=== PATIENT | female | born 1965 | race Two or more races ===

== ENCOUNTER 2019-01-18 01:36 | Emergency (ER) | payer OTHER ==
[2019-01-18 03:07] VITALS: BP 134/79; PULSE 70; TEMP 98.3; BMI 27.3
[2019-01-18] MEDS ORDERED: SODIUM CHLORIDE 1,000 ML IV STA ×2 (03:12→03:59)
[2019-01-18] MEDS ORDERED: METOCLOPRAMIDE HCL INJECTION 10 MG/2 ML VIAL IVPUSH ONE ×2 (03:13→03:59)
--- NOTE | 2019-01-18 03:27 | PDOC ---
History of Present Illness - General Chief Complaint: Injury Stated Complaint: FALL/PAIN,WEAKNESS Time Seen by Provider: 01/18/19 02:50 History Source: Patient Exam Limitations: No Limitations - History of Present Illness Initial Comments: 01/18/19 03:23 53yo F with no significant PMH presenting to ED with complaints of headache and neck pain x2d. Pt states Thursday evening she was getting on the swing in her backyard but fell backward and hit her head. She was able to get up afterward and did not lose consciousness. Since then she has had worsening heaviness and pain despite taking Advil. She states that today she felt a heaviness in her L eye, L arm and L leg and has had nausea today. Denies numbness/tingling, ataxia , dizziness, abdominal pain, vomiting, fevers, chills, changes in vision, tinnitus, sob, chest pain. PMD: PMH: none PSH: none Allergies: nkda Social: denies Past History - Past Medical History Allergies/Adverse Reactions: Allergies Allergy/AdvReac Type Severity Reaction Status Date / Time No Known Allergies Allergy Verified 01/18/19 03:07 Home Medications: Ambulatory Orders Azithromycin [Zithromax 250mg Tablets -] 250 mg PO UTDICT #6 tab 09/30/14 Hydrocodone Bit/Homatropine [Hycodan Syrup] 5 ml PO TID PRN #90 ml 09/30/14 Cardiac Disorders: Yes (COGENITAL HEART MURMUR) Diabetes: No Disorders: No HTN: No Hypercholesterolemia: No - Surgical History Abdominal Surgery: No Orthopedic Surgery: No - Family Disease History Family Disease History: Heart Disease: Father ( of a heart attack in his 70s ) - Suicide/Smoking/Psychosocial Hx Smoking History: Never smoked Have you smoked in the past 12 months: No Hx Alcohol Use: Yes Drug/Substance Use Hx: No Substance Use Type: None Review of Systems - Review of Systems Constitutional: No: Symptoms Reported HEENTM: No: Symptoms Reported Respiratory: No: Symptoms reported Cardiac (ROS): No: Symptoms Reported ABD/GI: No: Symptoms Reported : No: Symptoms Reported Musculoskeletal: Yes: Neck Pain Integumentary: No: Symptoms Reported Neurological: Yes: See HPI, Headache, Weakness *Physical Exam - Vital Signs Last Vital Signs Temp Pulse Resp BP Pulse Ox 98.3 F 70 16 134/79 99 01/18/19 01:36 01/18/19 01:36 01/18/19 01:36 01/18/19 01:36 01/18/19 01:36 - Physical Exam General Appearance: Yes: Nourished, Appropriately Dressed. No: Apparent Distress HEENT: positive: EOMI, JUSTICE, Normal ENT Inspection Neck: positive: Trachea midline, Supple Respiratory/Chest: positive: Lungs Clear, Normal Breath Sounds Cardiovascular: positive: Regular Rhythm, Regular Rate, S1, S2. negative: Edema , JVD, Murmur Vascular Pulses: Dorsalis-Pedis (R): 2+, Doralis-Pedis (L): 2+ Gastrointestinal/Abdominal: positive: Normal Bowel Sounds, Soft. negative: Tender Musculoskeletal: negative: CVA Tenderness, Muscle Spasm, Vertebral Tenderness Extremity: positive: Normal Capillary Refill, Pelvis Stable. negative: Swelling , Calf Tenderness Integumentary: positive: Normal Color, Dry, Warm Neurologic: positive: hand hardener II-XII NML intact, Fully Oriented, Alert, Normal Mood/ Affect, Normal Response, Motor Strength 5/5, Finger to Nose. negative: Facial Droop, Numbness, Sensory Deficit, Confused ED Treatment Course - RADIOLOGY Radiology Studies Ordered: Category Date Time Status HEAD CT WITHOUT CONTRAST [CT] Stat CT Scan 01/18/19 03:04 Taken Medical Decision Making - Medical Decision Making 01/18/19 03:25 53yo F with no significant PMH presenting to ED with complaints of headache and neck pain x2d. Pt states Thursday evening she was getting on the swing in her backyard but fell backward and hit her head. She was able to get up afterward and did not lose consciousness. Since then she has had worsening heaviness and pain despite taking Advil. She states that today she felt a heaviness in her L eye, L arm and L leg and has had nausea today. Denies numbness/tingling, ataxia , dizziness, abdominal pain, vomiting, fevers, chills, changes in vision, tinnitus, sob, chest pain. Vitals: wnl PE: normal neurological exam, no deficits. ddx includes but not limited to intracranial bleed, meningitis, enephalitis, cva /tia, msk -CT head. C-spine cleared by nexus criteria low supsicion for infectious etiology. CT head: No acute brain parenchymal abnormality. No hemorrhage, mass or acute territorial infarct. No skull fracture. Clear visualized paranasal sinuses. Visualized mastoid air cells clear. Does not need further labs at this time given mechanical fall, no AC, no medical problems. Will order iv fluids, reglan and benadryl. pt orginally refusing meds but later agreed. will reassess 01/18/19 05:01 Pt wants iv out, says it is hurting her. Will give po Tylenol and motrin. safe for dc home, ambulatory in ed, no neurological deficits. given return precautions *DC/Admit/Observation/Transfer Diagnosis at time of Disposition: Headache Qualifiers: Headache type: unspecified Headache chronicity pattern: acute headache Intractability: not intractable Qualified Code(s): R51 - Headache - Discharge Dispostion Disposition: HOME Condition at time of disposition: Improved Decision to Admit order: No - Referrals Referrals: Tavon Higgins MD [Staff Physician] - - Patient Instructions Printed Discharge Instructions: DI for Post-traumatic Headache Additional Instructions: You were seen in the emergency room today for headache. This is most likely due to the fall. The head CT is normal. You can take Tylenol for the headache as needed. I recommend that you see a neurologist. Information is provided below. Please come back to the emergency room for worsening headache, if you start vomiting, you have weakness or numbness/tingling or if any new concerning symptom develops. Thank you - Post Discharge Activity
[2019-01-18] MEDS ORDERED: METOCLOPRAMIDE HCL INJECTION 10 MG/2 ML VIAL ONE (04:01)
--- NOTE | 2019-01-18 04:02 | PDOC ---
Attending Attestation - Resident Resident Name: Rosmery Polanco - ED Attending Attestation I have performed the following: I have examined & evaluated the patient, The case was reviewed & discussed with the resident, I agree w/resident's findings & plan, Exceptions are as noted - HPI HPI: 01/18/19 03:59 53 yo F with h/o no pmhx here s/p fall off a swing two days ago. pt ws going to sit on a swing, fell back word. c/o headache and upper neck pain. does have nausea, no vomiting. no blood thinners no asa. no change to mental status. no weakness. no other mod factors. no other complaints. - Physicial Exam PE: 01/18/19 04:01 awake alert head atraumatic. lungs clear bilat heart rrr no mrg abd soft nt nd ext wwp. speech clear. moves all four ext. no midline spinal tenderness. - Medical Decision Making 01/18/19 04:01 53 s/p fall from lowheight 2 days ago. head atruam plan ct head iv medication hydration pain control reassess. 01/18/19 04:59 pt states feeling mildly better would like to go home.
[2019-01-18] MEDS ORDERED: IBUPROFEN 600 MG TABLET (FP) PO ONE ×2 (04:59→05:04)
[2019-01-18] MEDS ORDERED: ACETAMINOPHEN 500 MG TABLET (FP) PO ONE (04:59)
[2019-01-18] MEDS ORDERED: ACETAMINOPHEN 325 MG TABLET (FP) ONE (05:04)
== END 2019-01-18 05:06 | disposition home or self-care (01) ==
LOC: JER 01:36
PROC: 3E0337Z Introduction of Electrolytic and Water Balance Substance into Peripheral Vein, Percutaneous Approach (ICD-10-PCS; principal; 2019-01-18)
DX: R51 Headache (principal); W09.1XXA Fall from playground swing, initial encounter; Y93.89 Activity, other specified; Y92.017 Garden or yard in single-family (private) house as the place of occurrence of the external cause; Y99.8 Other external cause status
CPT/HCPCS: 70450-TC; 99281-25; J7030